=== PATIENT | male | born 1950 | race Caucasian/White ===

== ENCOUNTER 2020-12-08 11:43 | Outpatient (CLI) | payer MEDICARE, OTHER | END 2020-12-08 23:59 | disposition home or self-care (01) | LOC: CFH 11:43 | PROVIDERS: ATTEND Family Medicine | DX: I10 Essential (primary) hypertension (principal); R94.31 Abnormal electrocardiogram [ECG] [EKG] | CPT/HCPCS: 78452; 93017; A9502 ==